=== PATIENT | male | born 1970 | race Caucasian/White ===

== ENCOUNTER → 2019-09-03 09:33 | Outpatient (BNVA) | payer MEDICAID, SELFPAY | PROVIDERS: Family Provider Family Medicine; PCP Nurse Practitioner; Visit Provider Registered Nurse | DX: Z03.89 Encounter for observation for other suspected diseases and conditions ruled out (principal); F25.0 Schizoaffective disorder, bipolar type; G47.33 Obstructive sleep apnea (adult) (pediatric) | CPT/HCPCS: 80053; 80061; 82306; 82607; 83036; 83540; 84403; 84443; 85025 ==

== ENCOUNTER → 2020-01-25 11:41 | Outpatient (BNVA) | payer MEDICAID, SELFPAY | PROVIDERS: Family Provider Family Medicine; PCP Family Medicine; Visit Provider Registered Nurse | DX: Z03.89 Encounter for observation for other suspected diseases and conditions ruled out (principal); E03.9 Hypothyroidism, unspecified | CPT/HCPCS: 83036; 84443 ==

== ENCOUNTER 2020-02-19 20:00 | Outpatient (CLI) | payer MEDICAID, SELFPAY | END 2020-02-19 20:01 | disposition home or self-care (01) | LOC: SLEEP 02-22 08:15 | PROVIDERS: Family Provider Family Medicine; PCP Family Medicine; Visit Provider Registered Nurse | DX: G47.33 Obstructive sleep apnea (adult) (pediatric) (principal) | CPT/HCPCS: 95811 ==

== ENCOUNTER → 2020-04-18 10:42 | Outpatient (BNVA) | payer MEDICAID, SELFPAY | PROVIDERS: Family Provider Family Medicine; PCP Family Medicine; Visit Provider Registered Nurse | DX: F25.0 Schizoaffective disorder, bipolar type (principal) | CPT/HCPCS: 80335; 84439; 84443; 84481 ==

== ENCOUNTER → 2020-04-25 09:06 | Outpatient (BNVA) | payer MEDICAID, SELFPAY | PROVIDERS: Family Provider Family Medicine; PCP Family Medicine; Visit Provider Family Medicine | DX: L27.0 Generalized skin eruption due to drugs and medicaments taken internally (principal); E11.69 Type 2 diabetes mellitus with other specified complication; Z79.4 Long term (current) use of insulin; F25.0 Schizoaffective disorder, bipolar type | CPT/HCPCS: 80053; 85025; 85651; 86140 ==

== ENCOUNTER → 2020-05-18 12:16 | Outpatient (BNVA) | payer MEDICAID, SELFPAY | PROVIDERS: Family Provider Family Medicine; PCP Family Medicine; Visit Provider Family Medicine | DX: B86 Scabies (principal); L27.0 Generalized skin eruption due to drugs and medicaments taken internally; E11.9 Type 2 diabetes mellitus without complications; Z79.4 Long term (current) use of insulin | CPT/HCPCS: 80053; 83036; 85651; 86038; 86140 ==

== ENCOUNTER → 2020-06-22 09:26 | Outpatient (BNVA) | payer MEDICAID, SELFPAY | PROVIDERS: Family Provider Family Medicine; PCP Family Medicine; Referring Provider Registered Nurse; Visit Provider Registered Nurse | DX: E03.9 Hypothyroidism, unspecified (principal); Z79.899 Other long term (current) drug therapy | CPT/HCPCS: 80335; 84439 ==

== ENCOUNTER → 2020-08-22 11:30 | Outpatient (BNVA) | payer MEDICAID, SELFPAY | PROVIDERS: Family Provider Family Medicine; PCP Family Medicine; Visit Provider Registered Nurse | DX: Z79.899 Other long term (current) drug therapy (principal); F51.5 Nightmare disorder | CPT/HCPCS: 36415; 80053; 80061; 83036; 84439; 84443; 84481 ==

== ENCOUNTER → 2020-09-05 10:45 | Outpatient (BNVA) | payer MEDICAID, SELFPAY | PROVIDERS: Family Provider Family Medicine; PCP Family Medicine; Visit Provider Registered Nurse | DX: E03.9 Hypothyroidism, unspecified (principal); F51.5 Nightmare disorder | CPT/HCPCS: 36415; 80053; 80061; 83516; 84439; 84481 ==

== ENCOUNTER → 2020-09-07 10:34 | Outpatient (BNVA) | payer MEDICAID, SELFPAY | PROVIDERS: Family Provider Family Medicine; PCP Family Medicine; Referring Provider Physician Assistant Medical; Visit Provider Anesthesiology Pain Medicine | DX: G89.29 Other chronic pain (principal); M54.5 Low back pain; M54.9 Dorsalgia, unspecified; G57.10 Meralgia paresthetica, unspecified lower limb | CPT/HCPCS: 99204 ==

== ENCOUNTER 2020-12-27 14:20 | Outpatient (CLI) | payer MEDICAID, SELFPAY ==
--- NOTE | 2020-12-27 14:37 | XR_ITS ---
WS: [id number] DEXA (DUAL ENERGY X-RAY ABSORPTIOMETRY) Bone mineral density was performed using a [employer] machine. HISTORY: OTHER SPECIFIED DISORDER OF BONE DENSITY COMPARISON: None available. Lumbar spine BMD (L1-L4): 1.474 g/cm2 T score: 2.1 Z score: 1.6 Total hip BMD: Left: 1.237 g/cm2. T score: 0.9 Z score: 0.9 Right: 1.359 g/cm2. T score: 1.8 Z score: 1.7 10 year probability of a major osteoporotic fracture is 3%. XR/XR DEXA axial skeleton* [id number] IMPRESSION: NORMAL BONE MINERAL DENSITY.
== END 2020-12-27 14:21 | disposition home or self-care (01) ==
LOC: RADWPI 14:22
PROVIDERS: PCP Family Medicine; Visit Provider Physician Assistant
DX: M89.8X9 Other specified disorders of bone, unspecified site (principal)
CPT/HCPCS: 77080

== ENCOUNTER 2021-01-24 09:57 | Outpatient (CLI) | payer MEDICAID, SELFPAY ==
--- NOTE | 2021-01-24 10:15 | MR_ITS ---
WS: [id number] MRI LEFT KNEE NONCONTRAST TECHNIQUE: Axial PD, coronal PD fat sat, coronal PD, sagittal PD, and sagittal PD fat-sat images obta ined. CLINICAL INFORMATION: PAIN IN LEFT KNEE COMPARISON: None. FINDINGS: Distal quadriceps and patella tendons are intact. Moderate suprapatellar effusion. Normal ACL and PCL . Slightly hypertrophic patella. Mild prepatellar and infrapatellar soft tissue edema. Complex tear involving the anterior horn lateral meniscus extending to the articular surface with ass ociated edema. No acute medial meniscal tears. Chronic thinning of the medial meniscus. Moderate violeta dromalacia involving the medial and lateral joint compartments. Small amount subchondral edema anteri or lateral tibial plateau. Normal medial and lateral collateral ligaments. Moderate chondromalacia patella. No subchondral edema . Normal medial and lateral patellar retinaculum. Normal popliteal fossa. MR/MR knee LT wo con* [id number] IMPRESSION: 1. Normal ACL and PCL. 2. Complex tear involving the anterior horn lateral meniscus extending to the articular surface with T2 signal abnormality. 3. Chronic thinning of the medial meniscus. No acute appearing medial meniscal tears. 4. Moderate chondromalacia medial and lateral joint compartments. 5. Moderate chondromalacia patella. 6. Moderate suprapatellar effusion. Outbridge grading:
== END 2021-01-24 09:58 | disposition home or self-care (01) ==
PROVIDERS: PCP Physician Assistant; Visit Provider Physician Assistant
DX: S83.272A Complex tear of lateral meniscus, current injury, left knee, initial encounter (principal); M22.42 Chondromalacia patellae, left knee; M25.462 Effusion, left knee; X58.XXXA Exposure to other specified factors, initial encounter
CPT/HCPCS: 73721

== ENCOUNTER → 2021-04-28 08:29 | Outpatient (BNVA) | payer MEDICAID, SELFPAY | PROVIDERS: PCP Physician Assistant; Visit Provider Nurse Practitioner | DX: R56.9 Unspecified convulsions (principal); R55 Syncope and collapse | CPT/HCPCS: 80053; 80183; 80201; 99204 ==

== ENCOUNTER → 2021-05-17 08:41 | Outpatient (BNVA) | payer MEDICAID, SELFPAY | PROVIDERS: PCP Physician Assistant; Referring Provider Nurse Practitioner; Visit Provider Specialist | DX: G40.909 Epilepsy, unspecified, not intractable, without status epilepticus (principal) | CPT/HCPCS: 95816 ==

== ENCOUNTER → 2021-05-23 10:10 | Outpatient (BNVA) | payer MEDICAID, SELFPAY | PROVIDERS: PCP Physician Assistant; Visit Provider Family Medicine | DX: E11.69 Type 2 diabetes mellitus with other specified complication (principal); Z79.4 Long term (current) use of insulin; E03.9 Hypothyroidism, unspecified | CPT/HCPCS: 84439; 84443; 84481 ==

== ENCOUNTER 2021-05-24 12:36 | Outpatient (CLI) | payer MEDICAID, SELFPAY ==
--- NOTE | 2021-05-24 12:47 | MR_ITS ---
WS: [id number] MRI BRAIN WITH AND WITHOUT CONTRAST HISTORY: G40.909 - Epilepsy, unspecified, not intractable COMPARISON: 08/02/2011 TECHNIQUE: Multiplanar imaging performed through the brain with MultiHance 20 ml's IV. No acute infarcts are seen. Faust-white matter differentiation is well preserved. No susceptibility artifacts or prior lacunar infarcts. Ventricles and extra-axial spaces are normal. Clivus and pituitary gland are normal. Visualized posterior fossa and brainstem are also normal. Postcontrast images are negative for masses or vascular malformations. Dural venous sinuses are normal. Paranasal sinuses: Well aerated with no significant disease. Mastoid air cells: Small LEFT mastoid air cell effusion. Similar to the prior study. Calvarium and scalp: Normal. MR/MR head wo/w con [id number] IMPRESSION: 1. Normal MRI brain with contrast. 2. Small LEFT mastoid air cell effusion. Stable.
[2021-05-24] MEDS: gadobenate dimeglumine 20 mL vial IV (13:26)
== END 2021-05-24 12:37 | disposition home or self-care (01) ==
LOC: RADSHAW 12:39
PROVIDERS: PCP Physician Assistant; Visit Provider Nurse Practitioner
DX: G40.909 Epilepsy, unspecified, not intractable, without status epilepticus (principal)
CPT/HCPCS: 70553; A9577

== ENCOUNTER → 2021-09-20 10:37 | Outpatient (BNVA) | payer MEDICAID, SELFPAY | PROVIDERS: PCP Physician Assistant; Visit Provider Registered Nurse | DX: Z79.899 Other long term (current) drug therapy (principal) | CPT/HCPCS: 80053; 80061; 82306; 82746; 83036; 85025 ==

== ENCOUNTER 2021-12-21 09:23 | Outpatient (CLI) | payer MEDICAID, SELFPAY ==
--- NOTE | 2021-12-21 09:30 | USCV_ITS ---
Usman Pandya Age: 51 Gender: M : 1970 Exam Date: 12/21/2021 09:40 Ordering Phys: Latisha Enamorado MD [email or web address]) Technologist: RASHAD Exam Location: [facility] [place] Indication: SYNCOPE BP: 123 / 66 HR: 66 Rhythm: Sinus Technical Quality: Adequate MEASUREMENTS (Male / Female) Normal Values 2D ECHO LV Diastolic Diameter PLAX 5.6 cm 4.2 - 5.9 / 3.9 - 5.3 cm LV Systolic Diameter PLAX 3.6 cm IVS Diastolic Thickness 1.2 cm 0.6 - 1.0 / 0.6 - 0.9 cm IVS Systolic Thickness 2.4 cm LVPW Diastolic Thickness 1.3 cm 0.6 - 1.0 / 0.6 - 0.9 cm LVPW Systolic Thickness 1.6 cm LVOT Diameter 2.0 cm LV Ejection Fraction 2D Teich 63.9 % LV Ejection Fraction MOD 2C 63.6 % LV Ejection Fraction 2C AL 63.6 % LA Diameter 3.3 cm LA Width 3.0 cm LA Height 4.3 cm RA Width 3.4 cm RA Height 4.1 cm Aorta at Sinotubular Diameter 3.0 cm M-MODE Aortic Annulus Diameter 3.4 cm LA Ao Ratio MM 1.0 MV E Point Septal Separation 0.5 cm DOPPLER AV Peak Velocity 110.0 cm/s LVOT Peak Velocity 97.0 cm/s AV Area Cont Eq vti 3.0 cm squared AV Area Cont Eq pk 2.9 cm squared MV Peak Velocity 65.0 cm/s MV Area PHT 3.1 cm squared Mitral E to A Ratio 0.8 MV E' Velocity 35.0 cm/s Mitral E to MV E' Ratio 5.5 Mitral E to LV E' Lateral Ratio 4.5 Mitral E to LV E' Septal Ratio 7.1 TR Peak Velocity 156.4 cm/s TR Peak Gradient 9.8 mmHg TR Mean Velocity 124.0 cm/s TR Mean Gradient 6.5 mmHg TR Velocity Time Integral 30.0 cm TV Peak E Velocity 46.0 cm/s Right Atrial Pressure 8.0 mmHg Pulmonary Artery Systolic Pressu 17.8 mmHg PV Peak Velocity 94.0 cm/s RV Acceleration Time 0.1 s RV Ejection Time 0.3 s RV AcT/ET 0.4 FINDINGS Left Ventricle Normal left ventricular size, systolic function and wall thickness. Left ventricular ejection fraction is estimated at 65 %. There is possible hypokinesis of apical septal, apical lateral and apical guevara. Normal diastolic function. Right Ventricle Normal right ventricular size and systolic function. Right ventricular systolic pressure 17.8 mmHg. Right Atrium Normal right atrial size. Left Atrium Normal left atrial size. Mitral Valve Structurally normal mitral valve. No mitral valve stenosis. Trace mitral valve regurgitation. Aortic Valve Structurally normal trileaflet aortic valve. No aortic valve stenosis. No aortic valve regurgitation. Tricuspid Valve Structurally normal tricuspid valve. Trace tricuspid valve regurgitation. Pulmonic Valve Structurally normal pulmonic valve. No pulmonary valve stenosis. No significant pulmonary valve regurgitation. Pericardium No pericardial effusion. Aorta Normal size aortic root and proximal ascending aorta. IVC Normal inferior vena cava. CONCLUSIONS 1. Normal left ventricular size, systolic function and wall thickness. Left ventricular ejection fraction is estimated at 65 %. There is possible hypokinesis of apical septal, apical lateral and apical guevara. Normal diastolic function. 2. Normal right ventricular size and systolic function. 3. No significant valvular abnormality. 4. No prior similar studies to compare. Latisha Enamorado MD (Electronically Signed) Final Date: 23 December 2021 15:49 S
[2021-12-21] MEDS: perflutren protein-a microsphr 0.22 mg/mL SDV 3 mL IV (10:13)
== END 2021-12-21 09:24 | disposition home or self-care (01) ==
LOC: RAD 09:25
PROVIDERS: PCP Physician Assistant; Visit Provider Internal Medicine Cardiovascular Disease
DX: R55 Syncope and collapse (principal); G40.909 Epilepsy, unspecified, not intractable, without status epilepticus
CPT/HCPCS: C8929

== ENCOUNTER → 2022-01-17 09:17 | Outpatient (BNVA) | payer MEDICAID, SELFPAY | PROVIDERS: PCP Physician Assistant; Visit Provider Orthopaedic Surgery | DX: M17.12 Unilateral primary osteoarthritis, left knee (principal) | CPT/HCPCS: 20610; J0702; J3490 ==

== ENCOUNTER 2022-03-28 08:38 | Outpatient (CLI) | payer MEDICAID, SELFPAY ==
--- NOTE | 2022-03-28 | ECG_ITS ---
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 Interpretive Statements NAME OF STUDY: LEXISCAN SESTAMIBI STRESS TEST INDICATION: Chest Pain; Shortness of Breath PROCEDURE: At the baseline, the blood pressure was 132/88 mmHg, oxygen saturation 95% with a heart rate of of 64 bpm. The electrocardiogram showed sinus rhythm, normal axis. Possible old anteroseptal infarct. The Lexiscan was infused over a period of 20 seconds. A total of 0.4 milligrams of Lexiscan was infused. The stress phase was continued for a total of 5 minutes. Heart rate at the end of the stress phase was 71 bpm, oxygen saturation 96% with a blood pressure of 112/70 mmHg. The EKG at the peak infusion revealed sinus rhythm with no significant ST-T wave changes. The study was terminated protocol completion. Sestamibi was injected 20 seconds after the Lexiscan infusion. Blood pressure at the end of the recovery phase was 125/74 mmHg, oxygen saturation 95% with a heart rate of 69 beats per minute. CONCLUSION: 1. Normal EKG response to LexiScan infusion. 2. No LexiScan induced chest pain or cardiac arrhythmia. 3. Normal blood pressure and heart rate response. 4. Sestamibi/sestamibi perfusion scan pending; see separate report. Electronically Signed On 03-29-2022 13:07:34 CDT by Latisha Enamorado M.D. [email or web address]
[2022-03-28 08:51] VITALS: BMI 41.4
--- NOTE | 2022-03-28 08:59 | NMCV_ITS ---
NM kelsie perf SPECT r/s* [id number] Usman Pandya Age: 52 Gender: M : 1970 Exam Date: 03/28/2022 10:10 Ordering Phys: Latisha Enamorado MD ([email or web address]) Technologist: ANDREA Mendoza Exam Location: [facility] Indications: CHEST PAIN STRESS TEST Please see separate stress test report in [facility] for full findings IMAGE PROTOCOL Rest/Stress 1 Lexiscan Day Radiopharmaceutical Dose (mCi) Administration Site Administered by Rest: Tc-99m IV ANDREA Navarro Sestamibi Stress:Tc-99m 33.0 IV ANDREA Navarro Sestamibi Rest: 28-Mar-2022 60 Discovery 630 Stress: 28-Mar-2022 30 Discovery 630 0.4mg Lexiscan. Supine position only as patient was unable to lay prone. SPECT RESULTS Technical Quality: Good Raw Data Analysis: Normal Image Corrections: No attenuation or motion correction applied Summed Stress Score: 2 Summed Rest Score: 5 Summed Difference Score: 0 PERFUSION FINDINGS Small sized perfusion abnormality of mild severity of mid to apical inferior, mid inferolateral and apical septal guevara on rest images with some reversibility in mid inferior wall on stress images. FUNCTIONAL RESULTS (calculated via Gated SPECT) Stress Image LV EF (%): 55 Stress EDV (mL):93 TID: 0.97 Stress ESV (mL):42 FUNCTIONAL FINDINGS: The left ventricle is normal in size. Transient Ischemia Dilatation of 0.97. There is normal left ventricular systolic function. The left ventricular ejection fraction is normal with a value of 55%. There is normal left ventricular wall thickening. Normal end-diastolic and end-systolic volumes. IMPRESSIONS 1. Small sized partially reversible perfusion abnormality of mid to apical inferior, mid inferolateral and apical septal guevara. 2. This may represent small area of ischemia in right coronary artery territory. In absence of prone imaging, attenuation artifact cannot be completely ruled out. 3. Overall left ventricular systolic function is normal without regional wall motion abnormalities, LVEF=55%. 4. No EKG changes with Lexiscan infusion. Refer to separate report for details. Latisha Enamorado MD (Electronically Signed) Final Date: 29 March 2022 13:26 S
[2022-03-28] MEDS: regadenoson 0.4 Mg/5 ml Syringe IVP (10:52)
[2022-03-28 11:15] VITALS: BP 125/74; PULSE 61
== END 2022-03-28 08:39 | disposition home or self-care (01) ==
LOC: CDL 08:39
PROVIDERS: PCP Physician Assistant; Visit Provider Internal Medicine Cardiovascular Disease
DX: R07.9 Chest pain, unspecified (principal); R06.02 Shortness of breath
CPT/HCPCS: 78452; 93017; A9500; J2785

== ENCOUNTER → 2023-01-25 09:03 | Outpatient (BNVA) | payer MEDICAID, SELFPAY | PROVIDERS: PCP Physician Assistant; Visit Provider Internal Medicine Cardiovascular Disease | DX: R55 Syncope and collapse (principal) | CPT/HCPCS: 99214 ==

== ENCOUNTER → 2023-03-07 10:29 | Outpatient (BNVA) | payer MEDICAID, SELFPAY | PROVIDERS: PCP Physician Assistant; Visit Provider Nurse Practitioner Family | DX: M17.12 Unilateral primary osteoarthritis, left knee (principal) | CPT/HCPCS: 20610; 73560; 73565; 99213; J1100; J3301 ==

== ENCOUNTER → 2023-04-18 08:56 | Outpatient (BNVA) | payer MEDICAID, SELFPAY | PROVIDERS: PCP Physician Assistant; Visit Provider Registered Nurse | DX: Z79.899 Other long term (current) drug therapy (principal); F41.1 Generalized anxiety disorder; F25.0 Schizoaffective disorder, bipolar type | CPT/HCPCS: 80053; 80061; 83036; 85025 ==

== ENCOUNTER → 2023-10-25 07:54 | Outpatient (BNVA) | payer MEDICAID, SELFPAY ==
[2023-06-27 11:43] VITALS: BP 135/76; BMI 39.5
== END ==
PROVIDERS: PCP Physician Assistant; Visit Provider Specialist
DX: M17.12 Unilateral primary osteoarthritis, left knee; Z71.89 Other specified counseling
CPT/HCPCS: 20610; J1100; J2795; J3301

== ENCOUNTER → 2024-03-17 16:25 | Outpatient (BNVA) | payer MEDICAID, SELFPAY ==
[2023-06-27 11:43] VITALS: BP 135/76; BMI 39.5
== END ==
PROVIDERS: PCP Physician Assistant; Visit Provider Internal Medicine Cardiovascular Disease
DX: R55 Syncope and collapse (principal); I10 Essential (primary) hypertension
CPT/HCPCS: 99213

== ENCOUNTER → 2024-03-24 15:13 | Outpatient (BNVA) | payer OTHER, SELFPAY ==
[2023-06-27 11:43] VITALS: BP 135/76; BMI 39.5
== END ==
PROVIDERS: PCP Physician Assistant; Visit Provider Psychiatry & Neurology Psychiatry
DX: Z79.899 Other long term (current) drug therapy (principal)
CPT/HCPCS: 80053; 80061; 83036; 84443; 85025

== ENCOUNTER → 2024-09-14 13:46 | Outpatient (BNVA) | payer MEDICAID, SELFPAY ==
[2024-03-27 09:57] VITALS: BP 136/80; BMI 41.8
== END ==
PROVIDERS: PCP Physician Assistant; Visit Provider Nurse Practitioner
DX: M70.22 Olecranon bursitis, left elbow (principal); M77.8 Other enthesopathies, not elsewhere classified
CPT/HCPCS: 20600; 73080; 99214; J1100; J2795; J3301; J9999

== ENCOUNTER → 2024-10-26 13:06 | Outpatient (BNVA) | payer MEDICAID, SELFPAY ==
[2024-03-27 09:57] VITALS: BP 136/80; BMI 41.8
== END ==
PROVIDERS: PCP Physician Assistant; Visit Provider Nurse Practitioner
DX: M77.12 Lateral epicondylitis, left elbow (principal); M70.22 Olecranon bursitis, left elbow
CPT/HCPCS: 99214

== ENCOUNTER → 2024-11-30 09:44 | Outpatient (BNVA) | payer MEDICAID, SELFPAY ==
[2024-03-27 09:57] VITALS: BP 136/80; BMI 41.8
== END ==
PROVIDERS: PCP Physician Assistant; Visit Provider Nurse Practitioner
DX: M77.12 Lateral epicondylitis, left elbow (principal); M70.22 Olecranon bursitis, left elbow; M77.8 Other enthesopathies, not elsewhere classified
CPT/HCPCS: 20605; 99214; J2795; J3301; J9999

== ENCOUNTER → 2025-03-15 14:02 | Outpatient (BNVA) | payer MEDICAID, SELFPAY ==
[2024-03-27 09:57] VITALS: BP 136/80; BMI 41.8
== END ==
PROVIDERS: Visit Provider Nurse Practitioner
DX: M70.22 Olecranon bursitis, left elbow (principal); M77.12 Lateral epicondylitis, left elbow; M77.8 Other enthesopathies, not elsewhere classified
CPT/HCPCS: 20605; 99213; J1100; J2795; J3301; J9999

== ENCOUNTER → 2025-04-14 15:08 | Outpatient (BNVA) | payer MEDICAID, SELFPAY ==
[2024-03-27 09:57] VITALS: BP 136/80; BMI 41.8
== END ==
PROVIDERS: Visit Provider Internal Medicine Cardiovascular Disease
DX: R55 Syncope and collapse (principal); G40.909 Epilepsy, unspecified, not intractable, without status epilepticus; F41.1 Generalized anxiety disorder; R06.09 Other forms of dyspnea
CPT/HCPCS: 99214

== ENCOUNTER → 2025-06-18 08:54 | Outpatient (BNVA) | payer MEDICAID, SELFPAY ==
[2024-03-27 09:57] VITALS: BP 136/80; BMI 41.8
== END ==
PROVIDERS: Visit Provider Nurse Practitioner
DX: M77.12 Lateral epicondylitis, left elbow (principal); M70.22 Olecranon bursitis, left elbow; L03.114 Cellulitis of left upper limb
CPT/HCPCS: 87070; 87075; 87205; 99213